=== PATIENT | female | born 2000 | race Caucasian/White ===

== ENCOUNTER 2021-01-12 18:47 | Emergency (ER) | payer OTHER, SELFPAY ==
--- NOTE | ~2021-01-12 | XR_ITS ---
EXAMINATION: XR shoulder LT min 2V DATE: 01/12/2021 20:36 INDICATION: Postreduction left shoulder dislocation TECHNIQUE: AP internally and transscapular Y views of the left shoulder were obtained. COMPARISON: None FINDINGS: . The dislocated left glenohumeral joint is been reduced to normal alignment. Again seen is a Hill-Sa chs fracture trough at the posterolateral aspect of the humeral head. No other fractures identified. Glenohumeral and acromioclavicular joint spaces are normal. Visualized portions of the lungs are cassi r. Visualized cardiac mediastinal silhouette is normal. Soft tissues are unremarkable. IMPRESSION: 1. Successful reduction to normal alignment of the previously dislocated left glenohumeral joint. 2. Hill-Sachs fracture. Reviewed, dictated and finalized at location A. IMPRESSION: 1. Successful reduction to normal alignment of the previously dislocated left g lenohumeral joint. 2. Hill-Sachs fracture.
--- NOTE | ~2021-01-12 | XR_ITS ---
EXAMINATION: XR shoulder LT min 2V DATE: 01/12/2021 19:03 INDICATION: Left shoulder injury with prior dislocations TECHNIQUE: 3 views of the left shoulder were obtained. COMPARISON: None FINDINGS: Anterior left glenohumeral dislocation. Hill-Sachs fracture deformity at the humeral head no evident associated Bankart fracture. Normal alignment and joint space at the acromioclavicular joint. Visuali zed portions of the lungs are clear. IMPRESSION: Anterior left glenohumeral dislocation with small Hill-Sachs fracture trough. Reviewed, dictated and finalized at location A.
[2021-01-12 18:50] VITALS: BP 123/89; PULSE 125; RESP 15; TEMP 36.7; O2SAT 100
--- NOTE | 2021-01-12 19:03 | ED.UPPEXIN ---
HPI - Extremity Injury (Upper) General Chief Complaint: Extremity Injury, Upper Stated Complaint: l shoulder pain Time Seen by Provider: 01/12/21 19:03 History of Present Illness HPI narrative: 20 yo female w/ h/o L shoulder dislocation presents to the ED for the same. She reports she was playing chicken whenshe pushed someone and felt her shoulder pop out of place. She has severe pain. She is not able to move the shoulder. Feels that same as last time. Related Data Allergies Allergy/AdvReac Type Severity Reaction Status Date / Time No Known Allergies Allergy Verified 10/03/16 19:30 Review of Systems Review of Systems: All systems reviewed & are unremarkable except as noted in HPI and below PMFSH Social History Social History Gender identity (if verbalized by the patient): Female Exam Const: General: healthy appearing and alert Orientation/consciousness: patient oriented x3 Other: mild distress HENMT: Head: normal to inspection Resp: Effort & Inspection: normal respiratory effort Auscultation: clear to auscultation bilaterally Cardio: Rate: tachycardic Rhythm: regular rhythm Neuro: General: patient oriented x3, moves all extremities, no focal motor deficits and CN's II-XI intact bilaterally Other: sensation intact over deltoid Extrem: Other: left shoulder deformity 2+ left radial Course Vital Signs Vital signs: Vital Signs Temperature 36.7 C 01/12/21 18:50 Pulse Rate 125 H 01/12/21 18:50 Respiratory Rate 15 01/12/21 18:50 Blood Pressure 123/89 01/12/21 18:50 Pulse Oximetry 100 01/12/21 18:50 Temperature 37.4 C 01/12/21 20:54 Pulse Rate 129 H 01/12/21 21:48 Respiratory Rate 18 01/12/21 21:48 Blood Pressure 115/64 01/12/21 21:48 Pulse Oximetry 100 01/12/21 21:48 Procedures Orthopedic Joint Reduction Joint #1: Joint Reduction Location: shoulder Analgesia: procedural sedation and hematoma block Pre-Procedure Neuro Vascular Exam: normal Local Anesthesia: lidocaine 1% Amount of anesthesic used (mL): 10 Shoulder Technique Used (if applicable): other Post-reduction vascular: intact Post Reduction X-Ray Obtained: Yes Post Reduction X-Ray Results: reduced Splint Applied: Yes Patient Tolerated Procedure: well Procedural Sedation Procedural Sedation #1: Provider Performed: sedation and procedure Informed Consent Obtained: yes Equipment in Room: bag and mask, supervisor broadloom, crash cart, oxygen, pulse oximeter and suction Plan for Sedation: moderate sedation ASA Class: I Mallampati Classification: class I NPO Status: unknown Explanation to Patient/Family: Risk/Benefits/Alternatives Pt. Educated on Procedural Sedation: Yes Re-evaluated immediately prior: Yes Preparation: supervisor broadloom applied, pulse oximeter, capnometry used, supplemental O2 applied, suction/airway equipment at bedside and IV secured IV Propofol dose (mg): 40 Total Sedation Time (min): 10 Discharge Plan Discharge Clinical Impression: Shoulder dislocation Patient Disposition: Home, Self-Care Condition: Stable Instructions: Shoulder Dislocation (ED) Prescriptions: New hydrocodone-acetaminophen 5-325 mg tablet 1 tablet PO Q6H PRN (Reason: pain) Qty: 5 RF: 0 Follow-up/Referrals: Gt Patel MD [Physician] - Ana Yates MD [Primary Care Provider] -
[2021-01-12] MEDS: fentaNYL CITRATE INJ (*CRX) 100 MCG/2 ML VIAL IV PUSH (19:18)
[2021-01-12] MEDS: LORazepam INJ (*CRX) 2 MG/ML VIAL IV PUSH (19:27)
[2021-01-12 20:18] VITALS: BP 129/73; PULSE 122; RESP 17; TEMP 37.1; O2SAT 99
[2021-01-12] MEDS: SODIUM CHLORIDE 0.9% IV 1,000 ML 999 ML (20:20)
[2021-01-12] MEDS: PROPOFOL IV EMULSION 200 MG/20 ML VIAL (20:22)
[2021-01-12 20:24] VITALS: BP 112/91; PULSE 114; RESP 22; TEMP 37.2; O2SAT 96
[2021-01-12 20:39] VITALS: BP 103/80; PULSE 115; RESP 19; TEMP 37.2; O2SAT 100
[2021-01-12 20:54] VITALS: BP 126/58; PULSE 115; RESP 16; TEMP 37.4; O2SAT 100
--- NOTE | 2021-01-12 21:46 | PC.NURSE ---
pt ambulated self out of ED, pt had steady gait. pt escorted by friend who was driving pt home.
[2021-01-12 21:48] VITALS: BP 115/64; PULSE 129; RESP 18; O2SAT 100
== END 2021-01-12 21:46 | disposition home or self-care (01) ==
PROVIDERS: Emergency Provider Emergency Medicine; PCP Pediatrics
DX: S42.292A Other displaced fracture of upper end of left humerus, initial encounter for closed fracture (principal); X50.9XXA Other and unspecified overexertion or strenuous movements or postures, initial encounter
CPT/HCPCS: 23650; 73030; 96374; 96375; 99285; J2060; J2704; J3010; J7030

== ENCOUNTER 2021-04-08 17:00 | Emergency (ER) | payer OTHER, SELFPAY ==
--- NOTE | ~2021-04-08 | XR_ITS ---
EXAMINATION: XR finger 4th RT min 2V DATE: 04/08/2021 17:18 INDICATION: Right hand fourth digit injury and pain. TECHNIQUE: 3 views of right hand fourth digit were obtained. COMPARISON: None. FINDINGS: Bone alignment is normal. There is a fracture deformity of palmar base of fourth middle pha lanx. Joint spaces are normal. IMPRESSION: 1. Age-indeterminate fracture deformity of palmar base of fourth middle phalanx. Reviewed, dictated and finalized at location A. IMPRESSION: 1. Age-indeterminate fracture deformity of palmar base of fourth middle phalanx .
[2021-04-08 17:02] VITALS: BP 120/69; PULSE 104; RESP 20; TEMP 37.9; O2SAT 100
[2021-04-08 17:34] VITALS: TEMP 37
--- NOTE | 2021-04-08 17:38 | ED.UPPEXIN ---
HPI - Extremity Injury (Upper) General Chief Complaint: Extremity Injury, Lower Stated Complaint: hand injury Time Seen by Provider: 04/08/21 17:27 Source: patient Mode of arrival: ambulatory Limitations: no limitations History of Present Illness HPI narrative: This is a 20-year-old female that presents to the emergency department for right fourth finger injury sustained 2 days ago. Reports she was playing pinochle with her friends. Reports a twisting injury to the finger. Since she has had pain especially in the PIP joint. Reports decreased range of motion due to pain. Also reports swelling. Denies numbness. Related Data Home Medications Medication Instructions Recorded Confirmed No Home Medications 04/08/21 04/08/21 Allergies Allergy/AdvReac Type Severity Reaction Status Date / Time No Known Allergies Allergy Verified 04/08/21 17:10 Review of Systems Review of Systems: CONSTITUTIONAL: Denies fever MUSCULOSKELETAL: Reports joint pain, and myalgia. NEUROLOGIC: Denies numbness All systems reviewed & are unremarkable except as noted in HPI and below PMFSH Past Medical History Medical History (Updated 04/08/21 @ 17:43 by Krista Stacy PA-C) No active medical problems Social History Social History (Updated 04/08/21 @ 17:40 by Krista Stacy PA-C) Substance use: never Gender identity (if verbalized by the patient): Female Exam Narrative: GENERAL: Well-appearing, well-nourished, and in no acute distress. HEAD: Normocephalic, atraumatic. EYES: EOMI. EXTREMITIES: Normal range of motion. Mild edema about the right fourth finger PIP joint. Normal radial pulses. Normal sensation SKIN: Warm, dry, no rash. NEURO: No focal deficits. Alert and oriented x3. PSYCH: Normal mood and affect Course Vital Signs Vital signs: Vital Signs Temperature 100.2 F H 04/08/21 17:02 Pulse Rate 104 H 04/08/21 17:02 Respiratory Rate 04/08/21 17:02 Blood Pressure 120/69 04/08/21 17:02 Pulse Oximetry 100 04/08/21 17:02 Temperature 98.6 F 04/08/21 17:34 Pulse Rate 104 H 04/08/21 17:02 Respiratory Rate 20 04/08/21 17:02 Blood Pressure 120/69 04/08/21 17:02 Pulse Oximetry 100 04/08/21 17:02 MDM - Extremity Injury (Upper) MDM Narrative Medical decision making narrative: Patient presents to the emergency department for right fourth finger injury sustained a couple of days ago. Right fourth finger x-ray shows an age-indeterminate fracture deformity at the palmar base of the fourth middle phalanx. Patient was updated on case findings. She was placed in a finger splint. She is to follow-up with her primary care doctor. She was given warnings to return to the ER Imaging Data Radiologist's impression: ITS Impressions Finger X-Ray 04/08/21 17:23 IMPRESSION: 1. Age-indeterminate fracture deformity of palmar base of fourth middle phalanx. Critical Care Time Critical Care Time Critical Care Time: No Discharge Plan Discharge Clinical Impression: Finger fracture, right Qualifiers: Encounter type: initial encounter Finger: ring finger Fracture type: closed Phalanx: middle Fracture alignment: nondisplaced Qualified Code(s): S62.654A - Nondisplaced fracture of middle phalanx of right ring finger, initial encounter for closed fracture Patient Disposition: Home, Self-Care Condition: Stable Instructions: Finger Fracture (ED) Additional Instructions: Return to the ER if you experience redness and swelling of your finger, numbness, or any other symptoms that are concerning to you Rest. Ice to the area. Wear finger splint. Tylenol or ibuprofen as needed for discomfort Follow-up with your primary care doctor Prescriptions: No Action No Home Medications RF: 0 Follow-up/Referrals: Ana Yates MD [Primary Care Provider] - 1 Week
== END 2021-04-08 17:53 | disposition home or self-care (01) ==
PROVIDERS: Emergency Provider Emergency Medicine; PCP Pediatrics
DX: S62.654A Nondisplaced fracture of middle phalanx of right ring finger, initial encounter for closed fracture (principal); X50.9XXA Other and unspecified overexertion or strenuous movements or postures, initial encounter
CPT/HCPCS: 29130; 73140; 99284

== ENCOUNTER 2021-05-26 20:27 | Emergency (ER) | payer OTHER, SELFPAY ==
[2021-05-26 20:34] VITALS: BP 118/73; PULSE 110; RESP 18; TEMP 37.6; O2SAT 98
--- NOTE | 2021-05-26 21:42 | ED.URI ---
HPI - URI/Sore Throat General Chief Complaint: Unspecified Stated Complaint: sinus infection?? Time Seen by Provider: 05/26/21 21:27 Source: patient Mode of arrival: ambulatory Limitations: no limitations History of Present Illness HPI Narrative: Patient is a 20-year-old female complaining of cough, sore throat, nasal congestion, body aches, mild headache and fever x2 days. Patient denies any chest pain, shortness of breath, abdominal pain, nausea, vomiting, diarrhea or urinary symptoms. Related Data Home Medications Medication Instructions Recorded Confirmed No Home Medications 04/08/21 05/26/21 Allergies Allergy/AdvReac Type Severity Reaction Status Date / Time Penicillins Allergy Hives Verified 05/26/21 21:10 Review of Systems Review of Systems: All systems reviewed & are unremarkable except as noted in HPI and below Constitutional: Constitutional: Denies excessive sweating, Denies fatigue, Denies headache(s), Denies lethargy, Denies malaise, Denies weakness and Denies weight loss Eyes: Eyes: Denies blurry vision, Denies change in vision and Denies loss of vision ENT: Denies dizziness, Denies ear discharge, Denies headache(s), Denies lip swelling, Denies epistaxis, Denies neck pain and Denies tongue swelling Cardiovascular: Cardiovascular: Denies chest pain, Denies chest pain at rest, Denies chest pain with activity, Denies diaphoresis, Denies rapid heart rate, Denies edema, Denies irregular heart rhythm, Denies lightheadedness, Denies palpitations, Denies dyspnea and Denies dyspnea on exertion Respiratory: Respiratory: Denies chest congestion, Denies hemoptysis, Denies dyspnea and Denies dyspnea on exertion Gastrointestinal: Gastrointestinal: Denies abdominal pain, Denies melena, Denies hematochezia, Denies diarrhea, Denies nausea, Denies vomiting and Denies hematemesis Musculoskeletal: Musculoskeletal: Denies abnormal gait, Denies deformity, Denies joint swelling, Denies limited range of motion, Denies neck pain and Denies numbness Neurologic: Denies Abnormal speech present, Denies abnormal gait, Denies confusion, Denies dizziness, Denies headache(s), Denies focal weakness, Denies loss of vision, Denies numbness, Denies Other visual disturbances, Denies Sensory deficit (Neuro) and Denies weakness Psychiatric: Psychiatric: Denies confusion, Denies depression, Denies auditory hallucinations, Denies homicidal ideation and Denies suicidal ideation Endocrine: Endocrine: Denies cold intolerance, Denies excessive sweating, Denies fatigue, Denies heat intolerance and Denies palpitations Hematologic/Lymphatic: Hematologic/Lymphatic: Denies easy bleeding and Denies easy bruising Allergic/Immunologic: Allergic/Immunologic: Denies lip swelling, Denies throat swelling and Denies tongue swelling PMFSH Past Medical History Medical History No active medical problems Social History Social History Substance use: never Gender identity (if verbalized by the patient): Female Comments Past medical history: None Family history: None Social history: Non-smoker no EtOH or drug use Exam Const: General: cooperative, healthy appearing, comfortable, no acute distress, well developed, alert and awake; No confusion Orientation/consciousness: oriented to person, oriented to place, oriented to time, patient oriented x3 and No confusion Limitations: no limitations HENMT: Head: normal to inspection, normocephalic and atraumatic Ears: hearing grossly normal bilaterally, TM normal on the right and TM normal on the left General nose exam: Normal external nose present, Normal nares present and Nasal discharge present (Clear) Face and sinus: normal facial exam Mouth: Yes Normal oral and palatal mucosa present, Yes lip normal and Yes tongue normal Other: Erythematous mildly swollen posterior oropharynx negative for exudates Ey
[2021-05-26 22:25] VITALS: BP 116/71; PULSE 101; RESP 17; O2SAT 100
== END 2021-05-26 23:05 | disposition home or self-care (01) ==
PROVIDERS: Emergency Provider Emergency Medicine; PCP Pediatrics
DX: J06.9 Acute upper respiratory infection, unspecified (principal); J02.9 Acute pharyngitis, unspecified
CPT/HCPCS: 87081; 87880; 99283

== ENCOUNTER 2025-05-15 19:06 | Emergency (ER) | payer SELFPAY ==
--- NOTE | ~2025-05-15 | XR_ITS ---
Examination: XR chest 2V Clinical History: CHEST PAIN Comparison: Chest pain Technique: PA and Lateral Findings: Cardiomediastinal silhouette normal size and configuration. Lungs clear. No acute bony abnormality. IMPRESSION: 1. No acute cardiopulmonary findings. Reviewed, dictated and finalized at location R.
--- NOTE | 2025-05-15 19:07 | ECG_ITS ---
Test Date: 2025-05-15 19:12:21 Measurements Intervals [place] Rate: 101 P: 51 RI: 110 QRS: 76 QRSD: 81 T: 9 QT: 354 QTc: 460 Interpretive Statements SINUS TACHYCARDIA WITH SHORT RI INTERVAL NONSPECIFIC ST-T WAVE ABNORMALITY- ANTEROLAT/INF LEADS BASELINE ARTIFACT- V3-V5 BORDERLINE ECG No previous ECG available for comparison Electronically Signed On 05-15-2025 19:56:35 CDT by Peng Salcedo D.O.
[2025-05-15 19:40] VITALS: BP 127/85; PULSE 98; RESP 20; TEMP 36.7; O2SAT 100
[2025-05-15 20:14] LABS: Hematocrit 37.4 % (37.0-47.0); Hemoglobin 12.7 g/dL (12.0-15.0); Immature Granulocyte Percent A 0.3 % (0-0.5); Lymphocytes Absolute Auto 2.23 K/mm3 (0.9-3.2); Mean Corpuscular HGB Conc 34.0 g/dl (32-36); Mean Corpuscular Hemoglobin 33.1 pg (26-34); Mean Corpuscular Volume 97.4 fl (80-100); Nucleated Red Blood Cells Absolute Auto 0.000 K/mm3 (0.0-0.012); Nucleated Red Blood Cells Perc 0.0 % (0.0-0.2); Platelet Count Result 440 k/mm3 (150-375); Red Blood Count 3.84 M/mm3 (4.2-5.4); White Blood Count 7.8 K/mm3 (4.5-10.0)
[2025-05-15 20:30] LABS: Alanine Aminotransferase 21 U/L (6-35); Albumin Level 4.7 g/dL (3.5-5.1); Alkaline Phosphatase 61 U/L (38-126); Anion Gap 9 mmol/L (4-12); Aspartate Amino Transferase 33 U/L (14-36); Bilirubin,Total 0.3 mg/dL (0.2-1.3); Blood Urea Nitrogen 14 mg/dL (7-17); Calcium 9.5 mg/dL (8.4-10.2); Carbon Dioxide 25 mmol/L (22-30); Chloride 102 mmol/L (98-107); Estimated CRCL calculation 91 ml/min; Estimated Glomerular Filt Rate > 60; Glucose 124 mg/dL (65-110); Lipase 83 U/L (23-300); Potassium 4.2 mmol/L (3.4-5.0); Sodium 136 mmol/L (137-145); Total Protein 8.0 g/dL (6.3-8.2)
[2025-05-15 20:34] LABS: INR 1.2; Prothrombin Time 15.1 Seconds (11.1-14.7)
[2025-05-15 20:35] LABS: Partial Thromboplastin Time 28.7 Seconds (22.3-36.8)
[2025-05-15 20:46] LABS: Troponin I < 0.012 ng/mL (0.000-0.034)
[2025-05-16 00:24] VITALS: BP 111/65; PULSE 86; RESP 20; TEMP 36.7; O2SAT 100
--- NOTE | 2025-05-16 00:54 | ED_ITS ---
HPI - Chest Pain General Chief Complaint: Chest Pain Stated Complaint: CHEST PAIN SINCE THIS AM Time Seen by Provider: 05/16/25 00:41 History of Present Illness HPI narrative: Patient is a 24-year-old female who presents to the ER with chest tightness that started this morning around 9:00 a.m. She reports it is located in her left chest in between her nipple and midsternal area. Patient denies any recent cough, wheezing, abdominal pain, back pain or recent fevers. She reports the pain causes her to be short of breath. Patient reports the pain is better when she is laying flat rather than on her side. She reports it worsens when she lifts her left arm upwards. Patient denies any medical history relevant to this ER visit. Related Data Allergies Allergy/AdvReac Type Severity Reaction Status Date / Time Penicillins Allergy Hives Verified 05/15/25 19:44 Review of Systems 2 Review of Systems: All systems reviewed & are unremarkable except as noted in HPI and below PMFSH Past Medical History Medical History No active medical problems Social History Social History Substance use: never Gender identity (if verbalized by the patient): Female Exam 2 Narrative: GENERAL: Well appearing, well-nourished, non-toxic, in no acute distress. HEAD: Normocephalic, atraumatic. NECK: Supple. No adenopathy, no masses. RESPIRATORY: Airway patent, respirations nonlabored. Clear to auscultation bilaterally, no rales, rhonchi, wheezing. CARDIOVASCULAR: Regular rate and rhythm without murmurs, rubs, or gallops. Peripheral pulses 2+ and equal bilaterally. ABDOMINAL: Soft, nontender, nondistended, no hepatosplenomegaly. Normoactive BS. MUSCULOSKELETAL: Moves all extremities. Strength/ROM intact without gross deformities. SKIN: Warm, dry, normal color. No rashes. NEURO: A&O X3. Speech clear. Cranial nerves II-XII intact. No ataxic movements. PSYCHIATRIC: Appropriate mood and affect. Normal interaction. Course Vital Signs Vital signs: Vital Signs Temperature 36.7 C 05/15/25 19:40 Pulse Rate 98 05/15/25 19:40 Respiratory Rate 20 05/15/25 19:40 Blood Pressure 127/85 05/15/25 19:40 Pulse Oximetry 100 05/15/25 19:40 Oxygen Delivery Room Air 05/15/25 19:40 Temperature 36.7 C 05/16/25 00:24 Pulse Rate 86 05/16/25 00:24 Respiratory Rate 20 05/16/25 00:24 Blood Pressure 111/65 05/16/25 00:24 Pulse Oximetry 100 05/16/25 00:24 Oxygen Delivery Room Air 05/15/25 19:40 MDM - Chest Pain MDM Narrative Medical decision making narrative: Patient is a 24-year-old female who presents to the ER with chest tightness that started this morning around 9:00 a.m. She reports it is located in her left chest in between her nipple and midsternal area. Patient denies any recent cough, wheezing, abdominal pain, back pain or recent fevers. She reports the pain causes her to be short of breath. Patient reports the pain is better when she is laying flat rather than on her side. She reports it worsens when she lifts her left arm upwards. Patient denies any medical history relevant to this ER visit. Labs Ordered: CBC, CMP, D-dimer, TSH, troponin, PTT, INR, lipase Imaging Ordered: Chest x-ray Medications Ordered: 1 L normal saline IV bolus, Toradol 15 mg IV Results: Patient's CBC indicates a red blood cell count of 3.84, platelet count of 440. Her coags were within normal limits. Patient's D-dimer was negative. Her chemistry indicates a sodium of 136, creatinine of 0.61, glucose of 124. Patient's troponin levels were both negative. Her thyroid was within normal limits. Patient's chest x-ray indicates no acute abnormalities Diagnosis: Atypical chest pain, costochondritis Risks: HEART score: low risk HEART Score for Major Cardiac Events from [email or web address] on 05/16/2025 All calculations should be rechecked by clinician prior to use RESULT SUMMARY: 0 points Low Score (0-3 points) Risk of MACE of 0.9-1.7%. INPUTS: History ?> 0 = Slightly suspicious EKG ?> 0 = Normal Age ?> 0 = <45 Risk factors ?> 0 = No known risk factors Initial troponin ?> 0 = <Normal limit Consults: cardiology if symptoms persist (outpatient) Patient Education/Shared MDM: Results of lab work and imaging shared with patient. She endorses improvement of symptoms following Toradol medication administration. Patient strongly advised to maintain hydration status upon discharge and establish care with a PCP as soon as possible. She can also follow-up with Cardiology if her symptoms persist. Patient will be discharged home with a prescription for ibuprofen 800 mg p.o. Strict return precautions provided. Patient verbalized understanding and is in agreement with plan. Vital signs stable at time of discharge. All questions answered. Differential Diagnosis Differential diagnosis: Likely atypical chest pain, st elevation myocardial infarction and costochondritis Lab Data Attestation: I reviewed the patient's lab results. 05/15/25 20:08 05/15/25 20:08 Labs: Lab Results 05/15/25 05/16/25 Range/Units 20:08 01:00 WBC 7.8 (4.5-10.0) K/mm3 RBC 3.84 L (4.2-5.4) M/mm3 Hgb 12.7 (12.0-15.0) g/dL Hct 37.4 (37.0-47.0) % MCV 97.4 (80-100) fl MCH 33.1 (26-34) pg MCHC 34.0 (32-36) g/dl RDW 11.8 (11.5-14.5) % Plt Count 440 H (150-375) k/mm3 MPV 9.0 (7.4-10.4) fl Immature Gran % (Auto) 0.3 (0-0.5) % Neut % (Auto) 63.3 (45.5-73.1) % Lymph % (Auto) 28.7 (18.3-44.2) % [place] % (Auto) 5.9 (2.6-8.5) % Eos % (Auto) 1.0 (0-4.4) % Baso % (Auto) 0.8 (0.2-1.2) % Lymph # (Auto) 2.23 (0.9-3.2) K/mm3 [place] # (Auto) 0.5 (0.1-0.6) K/mm3 Eos # (Auto) 0.1 (0-0.3) K/mm3 Baso # (Auto) 0.1 (0.0-0.1) K/mm3 Abs Immat Gran (auto) 0.02 (0.00-0.031) K/mm3 Absolute Neuts (auto) 4.9 (1.3-6.7) K/mm3 Absolute Nucleated RBC 0.000 (0.0-0.012) K/mm3 Nucleated RBC % 0.0 (0.0-0.2) % PT 15.1 H (11.1-14.7) Seconds INR 1.2 APTT 28.7 (22.3-36.8) Seconds D-Dimer < 0.27 (<0.48) ug/mL Sodium 136 L (137-145) mmol/L Potassium 4.2 (3.4-5.0) mmol/L Chloride 102 (98-107) mmol/L Carbon Dioxide 25 (22-30) mmol/L Anion Gap 9 (4-12) mmol/L BUN 14 (7-17) mg/dL Creatinine 0.61 L (0.7-1.0) mg/dL Estim Creat Clear Calc 91 ml/min Estimated GFR > 60 (59 - ) Glucose 124 H (65-110) mg/dL Calcium 9.5 (8.4-10.2) mg/dL Total Bilirubin 0.3 (0.2-1.3) mg/dL AST 33 (14-36) U/L ALT 21 (6-35) U/L Alkaline Phosphatase 61 (38-126) U/L Troponin I < 0.012 < 0.012 (0.000-0.034) ng/mL Total Protein 8.0 (6.3-8.2) g/dL Albumin 4.7 (3.5-5.1) g/dL Lipase 83 (23-300) U/L TSH (Reflex) 3.090 (0.465-4.68) uIU/mL Imaging Data Attestation: I personally reviewed and interpreted this imaging study as follows: Radiologist's impression: Patient's chest x-ray indicates no acute abnormalities. Discharge Plan Discharge Clinical Impression: Atypical chest pain, Costalchondritis Patient Disposition: Home Condition: Stable Instructions: Antibiotic Form, Noncardiac Chest Pain (ED) Additional Instructions: Please return to the ER with any worsening symptoms. Establish care and follow- up with primary care provider as soon as possible. You may take Tylenol and ibuprofen for pain control. If your symptoms persist please make a follow-up appointment with Cardiology. Patient Language: Kyrgyz Prescriptions: New ibuprofen 800 mg tablet 800 mg PO TID PRN (Reason: pain) Qty: 30 0RF Follow-up/Referrals: Da Luo MD [Physician, Cardiology] Referral Note: cardiology PHYSICIAN,CLOTH DESIGNER [Primary Care Provider, Internal Medicine] Charles Mooney MD [Physician, Family Practice] Referral Note: primary care Time of Disposition: 02:32
--- NOTE | 2025-05-16 01:37 | ECG_ITS ---
Test Date: 2025-05-16 02:06:58 Measurements Intervals [place] Rate: 81 P: 49 [place]: 127 QRS: 65 QRSD: 94 T: 59 QT: 376 QTc: 439 Interpretive Statements SINUS RHYTHM NORMAL ECG Compared to ECG 05/15/2025 19:12:21 HEART RATE HAS DECREASED Electronically Signed On 05-16-2025 06:15:51 CDT by Peng Salcedo D.O.
[2025-05-16 01:39] LABS: Troponin I < 0.012 ng/mL (0.000-0.034)
[2025-05-16] MEDS: KETOROLAC 15 MG/ML VIAL (*BKC) IV PUSH (01:42)
[2025-05-16] MEDS: SODIUM CHLORIDE 0.9% IV 1,000 ML 999 ML IV CONT (01:42)
[2025-05-16 01:57] LABS: Thyroid Stimulating Hormone Reflex 3.090 uIU/mL (0.465-4.68)
== END 2025-05-16 03:32 | disposition home or self-care (01) ==
PROVIDERS: Emergency Medicine; Emergency Provider Registered Nurse
DX: R07.89 Other chest pain (principal)
CPT/HCPCS: 36415; 71046; 80053; 83690; 84443; 84484; 85025; 85380; 85610; 85730; 93005; 96361; 96374; 99284; J1885; J7030